=== PATIENT | female | born 2005 | race Caucasian/White ===

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

== ENCOUNTER → 2025-03-07 | Outpatient (CLI) | payer BC ==
[~2025-03-07] MED LIST changes: -BUTORPHANOL 2 MG/ML INJ (J0595) ONE; -FENTANYL 2MCG/ML ROPIVACAINE 0.2% IN 0.9% NACL 100ML IVBAG ONE; -OXYTOCIN 30 UNITS IN 0.9% NaCl 500ML IV BAG (J2590) ONE; -PENICILLIN G POTASSIUM 5 MU VIAL ONE; +PRENTAB9 PO; -PROMETHAZINE INJ 25 MG/ML VIAL (J2550) ONE; -ePHEDrine SULFATE 25 MG/5 ML(5MG/ML) SYRINGE ONE
[2025-03-07 15:29] LABS: PLATELET COUNT, AUTOMATED 230 10^3/uL (150-450)
[2025-03-07 15:57] LABS: HIV 1&2 SCREEN NEGATIVE (NEGATIVE)
[2025-03-07 16:04] LABS: HEPATITIS C VIRUS ABY INDEX < 0.02 INDEX (<0.8)
[2025-03-07 16:20] LABS: Trichomonas vaginalis (AMP) NOT DETECTED (NEGATIVE)
[2025-03-07 16:43] LABS: GC DNA AMPLIFICATION NEGATIVE (NEGATIVE)
== END ==
LOC: M PLALAB 11:51
PROVIDERS: ATTEND Advanced Practice Midwife
DX: Z34.81 Encounter for supervision of other normal pregnancy, first trimester (principal); Z3A.00 Weeks of gestation of pregnancy not specified